=== PATIENT | female | born 1955 | race Caucasian/White ===

== ENCOUNTER → 2021-03-26 | Outpatient (CLI) | payer OTHER, BC | LOC: SJCVC 13:24 | PROVIDERS: ATTEND Internal Medicine | DX: R94.31 Abnormal electrocardiogram [ECG] [EKG] (principal); I10 Essential (primary) hypertension; E78.5 Hyperlipidemia, unspecified; E11.9 Type 2 diabetes mellitus without complications; Z01.818 Encounter for other preprocedural examination; Z82.49 Family history of ischemic heart disease and other diseases of the circulatory system; Z79.4 Long term (current) use of insulin; Z79.899 Other long term (current) drug therapy ==

== ENCOUNTER → 2021-04-03 | Outpatient (CLI) | payer OTHER, BC | LOC: SJCVCIMAG 07:11 | PROVIDERS: ATTEND Internal Medicine | DX: Z01.810 Encounter for preprocedural cardiovascular examination (principal); I25.9 Chronic ischemic heart disease, unspecified; R94.31 Abnormal electrocardiogram [ECG] [EKG]; I10 Essential (primary) hypertension; E11.9 Type 2 diabetes mellitus without complications; E78.5 Hyperlipidemia, unspecified ==

== ENCOUNTER → 2021-04-07 | Outpatient (CLI) | payer OTHER, BC ==
[~2021-04-07] VITALS: Ht 160 cm; Wt 77.6 kg
[~2021-04-07] MED LIST: ACTOS15 MG PO; ALENDRONATE SOD70 MG PO; BUPROPION XL300 MG PO; CLARITIN10 M3 PO; CO Q-10200 MG PO; COZAAR 25 MG TA25 M2 PO; FARXIGA10 MG PO; GABAPENTIN600 M1 PO; HUMALOG100 UNIT/1 SUBQ; LEVO-T100 MCG PO; LIVER-KIDNEY C1 EACH PO; MELOXICAM15 MG PO; METHYLPREDNISOL32 MG PO; MIRALAX119 GM PO; ROPINIROLE HCL5 MG PO; ROSUVASTATIN CA20 MG PO; SENNA PLUS TAB1 EACH PO; SINEMET 25-1001 EAC1 PO; TOPROL XL25 MG PO; TRESIBA100 UNIT/1 SUBQ; ZELNORM6 MG PO
[2021-04-07 09:44] VITALS: BP 127/64
[2021-04-07 10:44] LABS: HEMATOCRIT 43.7 % (37.0-47.0); HEMOGLOBIN 14.9 gm/dL (12.0-15.0); MCH 30.4 pg (26.0-34.0); MCHC 34.2 g/dL (28.0-37.0); RBC 4.91 mil/uL (4.20-5.00); RDW 15.1 % (10.5-14.5); WBC 8.4 thou/uL (4.0-11.0)
[2021-04-07 11:01] LABS: CALCIUM 8.9 mg/dL (8.5-10.1); CREATININE 0.7 mg/dL (0.6-1.0); POTASSIUM 4.1 mmol/L (3.5-5.1)
--- NOTE | 2021-04-17 00:27 | CATHLAB ---
[facility] [place] [address] INVASIVE PROCEDURE REPORT Name: SHANNON CHAVEZ Room #: REG [facility] Randy#: [id number] Admission: 04/07/21 Attend Phys: Truman Novoa Discharge: Date of : 53 Report #: [id number] THIS REPORT FOR: cc: Michael Viveros MD, Richard MD Lammoglia, Francisco J. MD ~ APPROVED REPORT Study performed: 04/07/2021 10:22:50 Patient Details Patient Status: Out-Patient Room #: The patient is a 66 year-old female Event Personnel Truman Novoa Bill Poster Installer, Fouzia Rolon RN RN, Epifanio Hloder RN RN, Zamzam Olmedo RTR, JOSE ANTONIO Garcia, Philomena Avelar Monitor Procedures Performed Art Access - R femoral artery* Left Heart Cath w/or w/o Coronaries [id number] LHC FFR [id number] FFR Hemostasis w/ Mynx 58802 Initial Mod Sed Same Phys/QHP Gr5y 226352 00211 Mod Sed Same Phys/QHP Ea 837391, SUPERVISION OF CONSCIOUS SEDATION Indication Positive stress test, Chest pain Risk Factors Hypercholesterolemia, Hypertension, Diabetes Procedure Narrative The Right Groin^ was infiltrated with 1% Lidocaine subcutaneous anesthesia. A PINNACLE 4FR Sheath #[id number] sheath was inserted into the RFA 4F^. Coronary angiography was performed using coronary diagnostic catheters. The right coronary system was accessed and visualized with a JR4 catheter. The left coronary system was accessed and visualized with a JL4 catheter. There was no hematoma. Intraoperative Conscious Sedation Sedation start time: 1127 Case end Time: 1212 Versed 2 mg [facility] [address] [place] [address] INVASIVE PROCEDURE REPORT Name: SHANNON CHAVEZ Room #: REG [facility]#: [id number] Admission: 04/07/21 Attend Phys: Truman Senior Discharge: Date of : 53 Report #: [id number] Fluoro Time: 5.00 minutes Dose: DAP 3660.30 cGycm2 591 mGy Contrast Type and Amount: Omnipaque 60 ml Coronary Angiography The patient's coronary anatomy is right dominant. Diagnostic Cath Left Main Moderate to large caliber vessel. Bifurcates into left anterior descending and left circumflex arteries. it is free of highgrade lesions LAD MOderate caliber type II vessel which rise to a diminuitive first diagonal branch. It then continues in the anterior interventricular sulcus giving rise to a small to moderate second diagonal. The lad then rapidly tapers to a string like vessel terminating at the apex Diagonal 1 diminuitive size vessel free of high grade lesion Diagonal 2 small to moderate caliber branch coursing along the anterolateral wall without flowing limiting lesions Circumflex MOderate to large caliber nondominant artery which gives rise to a moderate caliber branching first marginal. the lcx proper continues in AV groove as a small insignificant vessel terminating before the crux of the heart. prior to om1 origin is a taper and a bend in the vesel suggesting a lesion. This lesion underwent IFR analysis OM1 modeate caliber whic a region suspicious for a bend proximally otherwise without highgrade lesions Right Coronary Moderate caliber dominant vessel without significant lesions noted R PDA small caliber tortuous vessel without significant stenosis Left Ventriculography Left Ventriculography was not performed. Hemodynamics The aortic pressure is 111/54 mmHg with a mean of 72 mmHg. The left ventricular pressure is 121/4 mmHg with a mean of mmHg. The left ventricular end diastolic pressure is 12 mmHg. FFER was performed on the LCX, WITH A PRE OF 1.0 and post 1.0. No intervention needed. Conclusion 1. Coronary Artery Disease nonobstructive with rapidly tapering [facility] [address] [place] [address] INVASIVE PROCEDURE REPORT Name: SHANNON CHAVEZ Room #: REG [facility]#: [id number] Admission: 04/07/21 Attend Phys: Truman Senior Discharge: Date of : 53 Report #: [id number] distal LAD,RCA and a moderate non flow limiting proximal LCX lesion 2. Normal hemodynamics Recommendations Cardiac Risk Reduction Program Medical Therapy <ELECTRONICALLY SIGNED> By: Truman Novoa MD 04/17/2125 Truman Novoa MD /INF
== END | disposition home or self-care (01) ==
LOC: CATH 08:54
PROVIDERS: ATTEND Internal Medicine
DX: R07.9 Chest pain, unspecified (principal); R94.39 Abnormal result of other cardiovascular function study; I25.10 Atherosclerotic heart disease of native coronary artery without angina pectoris; I10 Essential (primary) hypertension; E78.5 Hyperlipidemia, unspecified; E11.9 Type 2 diabetes mellitus without complications; E03.9 Hypothyroidism, unspecified; G20 Parkinson's disease; K21.9 Gastro-esophageal reflux disease without esophagitis; Z98.890 Other specified postprocedural states; Z79.899 Other long term (current) drug therapy; Z79.4 Long term (current) use of insulin; Z79.82 Long term (current) use of aspirin